=== PATIENT | male | born 1955 | race Caucasian/White ===

== ENCOUNTER 2016-11-08 16:27 | Inpatient (IN) | payer BC ==
[~2016-11-08] VITALS: Ht 188 cm; Wt 95.7 kg
[~2016-11-08 16:27] MED LIST: ADULT LOW DOSE81 MG PO; ASPIR 8181 MG PO; BRILINTA90 MG PO; COZAAR 50MG TAB50 MG PO; CRESTOR10 MG PO; GLUCOPHAGE 500500 MG PO; LANTUS100 UNIT/1 INJ; LOPRESSOR 25 MG25 MG PO; NITROSTAT 0.40.4 MG SL; NORVASC 5 MG TAB5 MG PO; OMEPRAZOLE40 MG PO; PROTONIX 40 MG40 M1 PO; PROTONIX40 MG PO; ZESTRIL10 MG PO
[2016-11-08 16:52] LABS: HEMOGLOBIN 14.7 gm/dl (14.0-17.5); RED BLOOD COUNT 4.93 M/UL (4.20-5.50); WHITE BLOOD COUNT 9.8 K/UL (4.5-11.0)
[2016-11-08 17:16] LABS: BUN/CREATININE RATIO 14 (0-10)
[2016-11-09 04:47] LABS: HEMOGLOBIN 13.7 gm/dl (14.0-17.5); RED BLOOD COUNT 4.62 M/UL (4.20-5.50); WHITE BLOOD COUNT 8.9 K/UL (4.5-11.0)
[2016-11-09 05:20] LABS: BUN/CREATININE RATIO 10 (0-10)
[2016-11-11 04:15] LABS: HEMOGLOBIN 14.8 gm/dl (14.0-17.5); RED BLOOD COUNT 4.98 M/UL (4.20-5.50)
[2016-11-11 04:22] LABS: WHITE BLOOD COUNT 12.8 K/UL (4.5-11.0)
[2016-11-11 04:35] LABS: BUN/CREATININE RATIO 11 (0-10)
[2016-11-11] MEDS ORDERED: NOVOLOG100 UNIT/1 SQ (12:26)
== END 2016-11-11 12:48 | disposition home or self-care (01) | DRG 247 ==
LOC: ER1 16:27 → ZEROF 18:43 → MED SURG 4 18:43 → PROG CARE 11-10 16:48
PROVIDERS: Internal Medicine Interventional Cardiology; Specialist/Technologist Athletic Trainer; ADMIT Hospitalist
PROC: 4A02XM4 Measurement of Cardiac Total Activity, External Approach (ICD-10-PCS; 2016-11-09)
PROC: 027034Z Dilation of Coronary Artery, One Artery with Drug-eluting Intraluminal Device, Percutaneous Approach (ICD-10-PCS; principal; 2016-11-10)
PROC: 4A023N8 Measurement of Cardiac Sampling and Pressure, Bilateral, Percutaneous Approach (ICD-10-PCS; 2016-11-10)
DX: I25.110 Atherosclerotic heart disease of native coronary artery with unstable angina pectoris (principal); I25.2 Old myocardial infarction; Z95.5 Presence of coronary angioplasty implant and graft; I10 Essential (primary) hypertension; E78.5 Hyperlipidemia, unspecified; E11.65 Type 2 diabetes mellitus with hyperglycemia; Z82.49 Family history of ischemic heart disease and other diseases of the circulatory system; Z98.890 Other specified postprocedural states; Z79.899 Other long term (current) drug therapy; Z79.82 Long term (current) use of aspirin; Z79.4 Long term (current) use of insulin; I25.10 Atherosclerotic heart disease of native coronary artery without angina pectoris
CPT/HCPCS: 36415; 71010; 78452; 80048; 80053; 80061; 82550; 82553; 82962; 83036; 83874; 84484; 85025; 85027; 85347; 93005; 93017; 96360; 99285; A9502; C1725; C1769; C1874; C1887; C9600; J0461; J0583; J1327; J1644; J2250; J3010; Q0163; Q9963

== ENCOUNTER → 2021-08-18 | Outpatient (CLI) | payer MEDICARE, OTHER ==
[~2021-08-18] MED LIST changes: +ATORVASTATIN CA10 MG PO; +BASAGLAR K100 UNIT/1 SQ; +CLARITIN10 M2 PO; +IMDUR ER TAB 3030 MG PO; +NOVOLIN R100 UNIT/1 SQ; +NOVOLOG100 UNIT/1 SQ; +PLAVIX 75 MG TA75 MG PO; +VICTOZA 1818 MG/3 ML PO; +VITAMIN C500 MG PO
[2021-08-18 10:35] LABS: HEMOGLOBIN 15.8 gm/dl (14.0-17.5); RED BLOOD COUNT 5.19 M/UL (4.20-5.50); WHITE BLOOD COUNT 8.8 K/UL (4.5-11.0)
[2021-08-19 07:11] LABS: ALKALINE PHOSPHATASE, S 69 IU/L (44-121); ALT (SGPT) 46 IU/L (0-44); AST (SGOT) 35 IU/L (0-40); BILIRUBIN, TOTAL 0.3 mg/dL (0.0-1.2); BUN 16 mg/dL (8-27); BUN/CREATININE RATIO 14 (10-24); CALCIUM, SERUM 9.7 mg/dL (8.6-10.2); CARBON DIOXIDE, TOTAL 22 mmol/L (20-29); CHLORIDE, SERUM 103 mmol/L (96-106); CREATININE, SERUM 1.15 mg/dL (0.76-1.27); EGFR IF AFRICN AM 75 (>59); EGFR IF NONAFRICN AM 65 (>59); GLOBULIN, TOTAL 2.3 g/dL (1.5-4.5); GLUCOSE, SERUM 220 mg/dL (65-99); POTASSIUM, SERUM 5.1 mmol/L (3.5-5.2); PROTEIN, TOTAL, SERUM 6.8 g/dL (6.0-8.5); SODIUM, SERUM 140 mmol/L (134-144)
[2021-08-19 08:15] LABS: CHOLESTEROL, TOTAL 131 mg/dL (100-199); HDL CHOLESTEROL 26 mg/dL (>39); LDL CHOLESTEROL CALC 72 mg/dL (0-99); LDL/HDL RATIO 2.8 ratio (0.0-3.6); TRIGLYCERIDES 198 mg/dL (0-149)
== END ==
LOC: LAB 10:07
PROVIDERS: Internal Medicine Cardiovascular Disease
DX: I25.10 Atherosclerotic heart disease of native coronary artery without angina pectoris (principal)
CPT/HCPCS: 36415; 80053; 80061; 85025

== ENCOUNTER → 2021-10-19 | Outpatient (CLI) | payer MEDICARE, OTHER | LOC: HEART 5 07:34 | DX: I25.10 Atherosclerotic heart disease of native coronary artery without angina pectoris (principal); R07.9 Chest pain, unspecified | CPT/HCPCS: 78452; A9502 ==